=== PATIENT | female | born 1945 | race Caucasian/White ===

== ENCOUNTER 2016-06-30 12:35 | Emergency (ER) | payer MEDICARE, MEDICAID ==
[2016-06-30 12:50] VITALS: TEMP 99.1; BMI 43.1
[2016-06-30 12:51] LABS: AUTOMATED BASOPHIL 1.3 % (0-2); AUTOMATED EOSINOPHIL 5.2 % (0-5); AUTOMATED LYMPH 31.1 % (17-44); AUTOMATED MONOCYTE 1.6 % (3-10); AUTOMATED NEUTROPHIL 60.8 % (45-76); MPV 8.4 fL (7.4-10.4)
[2016-06-30 13:03] LABS: BLOOD UREA NITROGEN 16 MG/DL (7-17); CALCIUM 8.9 MG/DL (8.4-10.2); CALCULATED OSMOLALITY 261 MOs/Kg (270-290); CHLORIDE 98 mEq/L (98-107); GLUCOSE 252 MG/DL (70-99); SODIUM LEVEL 130 mEq/L (137-146); TOTAL PROTEIN 6.9 G/DL (6.3-8.2)
[2016-06-30 13:05] LABS: PARTIAL THROMB. TIME 24.1 SEC (22-35)
[2016-06-30] MEDS ORDERED: Pharmacy Review for Metformin - IV Contrast Given SCH (15:00)
[2016-06-30] MEDS ORDERED: MORPHINE 4 MG/ML INJECTION IV ONE (16:04)
[2016-06-30] MEDS ORDERED: hydrALAZINE 25 MG TAB PO STA (16:05)
--- NOTE | 2016-06-30 16:07 | EDPRACDOC ---
- General Information Chief Complaint: Chest Pain Stated Complaint: CP TIGHTNESS HAS HAD 1 ROUND OF CHEMO Time Seen by Provider: 06/30/16 14:18 Information Source: Patient, Family Mode of Arrival: Car Home Medications: Home Medications Albuterol Sulfate [Proair Hfa] 2 puff INH DAILY 02/21/15 Budesonide/Formoterol Fumarate [Symbicort 160-4.5 Mcg Inhaler] 2 puff INH BID Enalapril Maleate [Vasotec] 20 mg PO BID 02/21/15 Esomeprazole Mag Trihydrate [Nexium] 40 mg PO DAILY 02/21/15 Felodipine [Felodipine ER] 10 mg PO DAILY 02/21/15 Insulin Isophane/Regular 70-30 [Humulin 70-30] 0 units SQ .SLIDING SCALE Levothyroxine Sodium 50 mcg PO DAILY 02/21/15 Metoprolol Tartrate [Lopressor] 100 mg PO BID 02/21/15 Simvastatin [Zocor] 40 mg PO QHS 02/21/15 Escitalopram Oxalate [Lexapro] 10 mg PO DAILY 01/21/16 Insulin Lispro [Humalog] 0 units SQ .SLIDING SCALE 01/21/16 Spironolactone [Aldactone] 25 mg PO DAILY 01/21/16 Promethazine HCl [Phenergan] 1 tab PO Q6H PRN 06/17/16 HydrALAZINE (Cardiovascular) [Apresoline] 25 mg PO TID 06/30/16 Hydrocodone Bit/Acetaminophen [Ramah 10-325 Tablet] 1 tab PO DAILY PRN 06/30/16 Loratadine [Claritin] 10 mg PO HS 06/30/16 Polyethylene Glycol 3350 [Miralax] 17 gm PO DAILY 06/30/16 Prochlorperazine [Compazine] 10 mg PO Q6H PRN 06/30/16 Allergies/Adverse Reactions: Allergies Allergy/AdvReac Type Severity Reaction Status Date / Time acetaminophen Allergy See Verified 06/30/16 12:39 [From Tylenol PM] Comments clopidogrel bisulfate Allergy See Verified 06/30/16 12:39 [From Plavix] Comments diphenhydramine HCl Allergy See Verified 06/30/16 12:39 [From Tylenol PM] Comments - History of Present Illness Onset: this morning HPI: PT PRESENTS WITH CHEST PAIN THAT BEGAN AROUND 0800 THIS AM. 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 Chest Pain Location: Reports: Substernal Pain Radiation: Reports: None Symptoms Occur: Reports: At Rest Pain Came On: Reports: Suddenly Pain Status: Present Now Pain Description: Reports: Tightness Pain Severity: Moderate Pain Worsens With: Reports: Nothing ED Past Medical History - History Reviewed Yes Nurses notes reviewed and agree except as marked - Patient Medical History Neurological History: Reports: Cerebrovascular Accident (1989, RIGHT SIDED WEAKNESS) Cardiac History: Reports: Atrial Fibrillation, Hypertension, Heart Attack (2015), Cardiac Catheterization, Hypercholesterolemia Respiratory History: Reports: COPD GI/ History: Reports: Urinary Tract Infection, Gastroesophageal Reflux. Denies: Diverticulosis Musculoskeletal History: Reports: Arthritis Psychological History: Denies: Depression, Substance Use Disorder Systemic History: Reports: Cancer (perineal), Diabetes, Hypothyroidism Surgical History: Reports: Cholecystectomy, Cardiac Catheterization - Family Medical History Reports: Hypertension (sis), Diabetes (sister, mom), Cancer (sis-liver), Stroke (sis), Cardiac Disorders (mom) - Social Medical History Smoking Status: Former smoker Social History: Denies: Substance Use Disorder Lives In: Home EDM Review of Systems - Review of Systems ROS Negative Except as Marked: Yes All systems reviewed and were negative except as marked Constitutional: Fatigue, Weakness. negative: Fever Cardiovascular: Chest Pain Gastrointestinal: Nausea, Pain (CHRONIC UNCHANGED). negative: Vomiting - Physical Exam Constitutional: Alert Oriented to: Time, Person, Place Last recorded Vital Signs: Last Vital Signs Temp 99.1 F 06/30/16 12:39 Pulse 63 06/30/16 14:20 Resp 20 06/30/16 14:20 BP 188/78 H 06/30/16 14:20 Pulse Ox 94 06/30/16 14:20 Oxygen Pulse Oxygen Saturation 94 O2 Device Room Air Oxygen Flow Rate Fraction of Inspired Oxygen ( FIO2) - HEENT Head: negative: Deformity, Laceration Eye Exam: negative: Conjunctival Injection, Pale Conjunctiva Oropharynx: negative: Membranes Dry Nose: negative: Congestion, Discharge Neck: negative: Limited ROM - Respiratory/Cardiovascular Respiratory: Normal - CTA. negative: Accessory Muscle Use, Diminished, Tachypnea Cardiovascular: negative: Bradycardia, Tachycardia, Irregular - GI Auscultation: Normal Palpation: Normal Tenderness: Diffuse, Mild. negative: Guarding, Rebound, Rigidity - Musculoskeletal Extremities: Radial Pulse (PALPABLE) - Integumentary Skin: Warm, Dry. negative: Rash - Neurologic Memory Impaired: Normal Motor Function: Normal Mood Description: Anxious, Appropriate Thought: Coherent Perception: Normal ED Chest Pain Exam - Respiratory/Cardiovascular Chest Palpation: negative: Tender, Reproduces Pain - Action Patient received Aspirin within last 24 hours?: No ASA given in the ED: No - Results 06/30/16 12:44 06/30/16 12:44 WBC 6.2 xk/uL (3.8-10.8) 06/30/16 12:44 RBC 5.26 xM/uL (4.20-5.40) 06/30/16 12:44 Hgb 14.4 g/dL (12.0-16.0) 06/30/16 12:44 Hct 43.7 % (36-47) 06/30/16 12:44 MCV 83 fL (81-99) 06/30/16 12:44 MCH 27.4 pg (27-32) 06/30/16 12:44 MCHC 33.0 g/dl (33-36) 06/30/16 12:44 RDW 14.3 % (11.5-14.5) 06/30/16 12:44 Plt Count 164 xk/uL (130-400) 06/30/16 12:44 MPV 8.4 fL (7.4-10.4) 06/30/16 12:44 Neut % (Auto) 60.8 % (45-76) 06/30/16 12:44 Lymph % (Auto) 31.1 % (17-44) 06/30/16 12:44 [place] % (Auto) 1.6 % (3-10) L 06/30/16 12:44 Eos % (Auto) 5.2 % (0-5) H 06/30/16 12:44 Baso % (Auto) 1.3 % (0-2) 06/30/16 12:44 Absolute Neuts (auto) 3.72 xk/uL (1.7-8.2) 06/30/16 12:44 Absolute Lymphs (auto) 1.92 xk/uL (0.65-4.75) 06/30/16 12:44 PT 10.4 SEC (9.2-11.2) 06/30/16 12:44 INR 1.0 06/30/16 12:44 APTT 24.1 SEC (22-35) 06/30/16 12:44 Sodium 130 mEq/L (137-146) L 06/30/16 12:44 Potassium 4.9 mEq/L (3.5-5.1) 06/30/16 12:44 Chloride 98 mEq/L (98-107) 06/30/16 12:44 Carbon Dioxide 21 mMOL/L (22-33) L 06/30/16 12:44 Anion Gap 16 mEq/L (8-16) 06/30/16 12:44 BUN 16 MG/DL (7-17) 06/30/16 12:44 Creatinine 0.80 MG/DL (0.52-1.04) 06/30/16 12:44 Estimated GFR (MDRD) > 60 mL/min (>=60) 06/30/16 12:44 Glucose 252 MG/DL (70-99) H 06/30/16 12:44 Calculated Osmolality 261 MOs/Kg (270-290) L 06/30/16 12:44 Calcium 8.9 MG/DL (8.4-10.2) 06/30/16 12:44 Total Bilirubin 0.6 MG/DL (0.2-1.3) 06/30/16 12:44 AST 36 IU/L (14-36) 06/30/16 12:44 ALT 45 IU/L (9-52) 06/30/16 12:44 Alkaline Phosphatase 45 IU/L (55-165) L 06/30/16 12:44 Troponin I < 0.01 ng/mL (<.04) 06/30/16 12:44 Tdr-M-Evafinywqsd Pept 194 pg/mL (0-900) 06/30/16 12:44 Total Protein 6.9 G/DL (6.3-8.2) 06/30/16 12:44 Albumin 4.0 G/DL (3.5-5.0) 06/30/16 12:44 Lab Results 06/30/16 06/30/16 06/30/16 12:44 12:44 12:44 WBC 6.2 RBC 5.26 Hgb 14.4 Hct 43.7 MCV 83 MCH 27.4 MCHC 33.0 RDW 14.3 Plt Count 164 MPV 8.4 Neut % (Auto) 60.8 Lymph % (Auto) 31.1 [place] % (Auto) 1.6 L Eos % (Auto) 5.2 H Baso % (Auto) 1.3 Absolute Neuts (auto) 3.72 Absolute Lymphs (auto) 1.92 PT 10.4 INR 1.0 APTT 24.1 Sodium 130 L Potassium 4.9 Chloride 98 Carbon Dioxide 21 L Anion Gap 16 BUN 16 Creatinine 0.80 Estimated GFR (MDRD) > 60 Glucose 252 H Calculated Osmolality 261 L Calcium 8.9 Total Bilirubin 0.6 AST 36 ALT 45 Alkaline Phosphatase 45 L Troponin I < 0.01 Gwe-V-Fksphsutova Pept 194 Total Protein 6.9 Albumin 4.0 Laboratory Results - last 24 hr 06/30/16 06/30/16 06/30/16 12:44 12:44 12:44 WBC 6.2 RBC 5.26 Hgb 14.4 Hct 43.7 MCV 83 MCH 27.4 MCHC 33.0 RDW 14.3 Plt Count 164 MPV 8.4 Neut % (Auto) 60.8 Lymph % (Auto) 31.1 [place] % (Auto) 1.6 L Eos % (Auto) 5.2 H Baso % (Auto) 1.3 Absolute Neuts (auto) 3.72 Absolute Lymphs (auto) 1.92 PT 10.4 INR 1.0 APTT 24.1 Sodium 130 L Potassium 4.9 Chloride 98 Carbon Dioxide 21 L Anion Gap 16 BUN 16 Creatinine 0.80 Estimated GFR (MDRD) > 60 Glucose 252 H Calculated Osmolality 261 L Calcium 8.9 Total Bilirubin 0.6 AST 36 ALT 45 Alkaline Phosphatase 45 L Troponin I < 0.01 Ncd-A-Zlxocdgrhak Pept 194 Total Protein 6.9 Albumin 4.0 Laboratory Results 06/30/16 12:44 06/30/16 12:44 - EKG EKG #1 EKG Time: 12:42 -: Yes EKG interpreted by me Rate: bpm: 64 Rhythm: NSR Block: None ST: Nonsp Decision Time to Discharge: 16:35 - Departure Yes I personally saw and evaluated the patient. Disposition: Home Condition: Stable Final Diagnosis: Chest pain Instructions: Chest Pain (ED) Education/Counseling Given To: Patient Education/Counseling Given Regarding: Diagnosis, Treatment, Prognosis, Follow Up Referrals: Juan C Galindo MD [Primary Care Provider] - As Needed
--- NOTE | 2016-06-30 16:32 | DIRPT ---
CLINICAL DATA: Chest pain and tightness beginning at 0800 hours, has abdominal cancer and recently started chemotherapy EXAM: CT ANGIOGRAPHY CHEST WITH CONTRAST TECHNIQUE: Multidetector CT imaging of the chest was performed using the standard protocol during bolus administration of intravenous contrast. Multiplanar CT image reconstructions and MIPs were obtained to evaluate the vascular anatomy. CONTRAST: 80 cc Isovue 370 IV. COMPARISON: 01/21/2016 FINDINGS: Atherosclerotic calcifications aorta and coronary arteries. Aorta normal caliber without aneurysm or dissection. No thoracic adenopathy. AP window lymph node 7 mm short axis image 34 previously 6 mm. Liver appears cirrhotic. Remaining visualized upper abdomen unremarkable. Pulmonary arteries well opacified and patent. No evidence of pulmonary embolism. Minimal subsegmental atelectasis RIGHT middle lobe and lingula. Tiny lateral RIGHT upper lobe nodule image 15 unchanged. Tiny LEFT upper lobe pulmonary nodule image 17 unchanged. No acute infiltrate, pleural effusion, pneumothorax, or definite new mass/nodule. Bones unremarkable. Review of the MIP images confirms the above findings. IMPRESSION: No evidence of pulmonary embolism. Linear subsegmental atelectasis RIGHT middle lobe and lingula. Stable tiny BILATERAL upper lobe pulmonary nodules. Cirrhotic appearing liver. Electronically Signed By: Satnam Summers M.D. On: 06/30/2016 16:29
[2016-06-30 17:21] VITALS: BP 168/89; PULSE 81
== END 2016-06-30 17:19 | disposition home or self-care (01) ==
LOC: ED 12:35
DX: R07.9 Chest pain, unspecified (principal)
CPT/HCPCS: 36415; 71275; 80053; 83880; 84484; 85025; 85610; 85730; 93005; 96374; 99284; A9270; A9698; J2270; J3490